=== PATIENT | female | born 1985 | race Caucasian/White ===

== ENCOUNTER 2021-03-08 03:25 | Inpatient (IN) | payer BC, OTHER ==
[2021-03-08] MEDS ORDERED: ELECTROLYTE-148 SOLN 1,000 ML IV SCH ×2 (04:00→08:45)
[2021-03-08] MEDS ORDERED: BUTORPHANOL TARTRATE 2 MG/ML VIAL IVPB ONE (04:30)
[2021-03-08] MEDS ORDERED: PROMETHAZINE HCL 25 MG/1 ML VIAL IVPB ONE (04:30)
[2021-03-08] MEDS ORDERED: PROMETHAZINE HCL 25 MG/1 ML VIAL ONE (04:59)
[2021-03-08] MEDS ORDERED: BUTORPHANOL TARTRATE 2 MG/ML VIAL ONE (04:59)
[2021-03-08 05:35] LABS: BASO % 0.3 % (0-2.0); EOS % 0.8 % (0-4.5); HEMATOCRIT 37.5 % (32.4-45.2); HEMOGLOBIN 12.5 GM/dL (10.7-15.3); LYMPH % 18.6 % (8-40); MCHC 33.3 g/dl (32.0-36.0); MEAN CELL VOLUME 81.1 fl (80-96); MEAN PLT VOLUME 11.4 fl (7.5-11.1); MONO % 5.8 % (3.8-10.2); NEUT % 74.5 % (42.8-82.8); PLATELET COUNT 149 10^3/uL (134-434); RBC 4.63 M/mm3 (3.60-5.2); RDW 14.4 % (11.6-15.6); WHITE BLOOD COUNT 7.3 K/mm3 (4.0-10.0)
[2021-03-08 05:46] LABS: INR 0.87 (0.83-1.09); PROTHROMBIN TIME (PATIENT) 9.7 SEC (9.7-13.0)
[2021-03-08 05:48] LABS: ACTIVATED PTT 24.9 SECONDS (25.2-36.5)
[2021-03-08 05:59] LABS: CALCIUM 8.9 mg/dL (8.5-10.1)
[2021-03-08 06:00] LABS: BLOOD UREA NITROGEN 11.9 mg/dL (7-18)
[2021-03-08 06:03] LABS: CREATININE 0.7 mg/dL (0.55-1.3)
[2021-03-08 06:08] VITALS: BMI 38.1
[2021-03-08] MEDS ORDERED: BUTORPHANOL TARTRATE 1 MG/ML VIAL IVPB ONE (08:33)
[2021-03-08] MEDS ORDERED: PROMETHAZINE HCL 25 MG/1 ML VIAL IVPUSH ONE (08:33)
[2021-03-08] MEDS ORDERED: FENTANYL/BUPIVACAINE/NS/PF - PCEA - 50 ML DISP.SYRIN EP ONE (12:03)
[2021-03-08] MEDS ORDERED: PCA PUMP NR ONE ×2 (12:04→18:33)
[2021-03-08] MEDS ORDERED: BUPIVACAINE HCL/PF 0.25% (2.5MG/ML) 10 ML VIAL ONE ×2 (12:06→16:16)
[2021-03-08] MEDS ORDERED: OXYTOCIN 30 UNITS in 0.9% NS 30 UNIT/500 ML INFUS.BAG IVPB ONE (12:11)
[2021-03-08] MEDS: FENTANYL/BUPIVACAINE/NS/PF - PCEA - 50 ML DISP.SYRIN EP SCH (13:00)
[2021-03-08] MEDS ORDERED: ACETAMINOPHEN INJECTION 100 ML IVPB ONE (13:20)
[2021-03-08] MEDS ORDERED: NALOXONE HCL 0.4 MG/ML VIAL IVPUSH PRN (13:25)
[2021-03-08] MEDS ORDERED: ACETAMINOPHEN 1000 MG/100 ML VIAL IVPB PRN (13:26)
[2021-03-08] MEDS ORDERED: LIDOCAINE HCL/EPINEPHRINE/PF 10 ML VIAL ONE (18:49)
[2021-03-08] MEDS ORDERED: LIDOCAINE HCL 2% (20ML MULTI-DOSE VIAL) ONE (18:52)
[2021-03-08] MEDS ORDERED: ePHEDrine SULFATE 50 MG/1 ML AMPULE ONE (18:55)
[2021-03-08] MEDS ORDERED: morphine SULFATE (PF) 1 MG/2 ML SYRINGE ONE ×2 (18:55)
[2021-03-08] MEDS ORDERED: ONDANSETRON 4 MG/2 ML VIAL ONE (18:58)
[2021-03-08] MEDS ORDERED: KETOROLAC TROMETHAMINE 30 MG/1 ML VIAL ONE (18:58)
[2021-03-08] MEDS ORDERED: OXYTOCIN 10 UNIT/ML 10ML MDV ONE (18:58)
[2021-03-08] MEDS ORDERED: ceFAZolin SODIUM 1 GM VIAL ONE (18:58)
[2021-03-08] MEDS ORDERED: PROPOFOL 20 ML ONE (19:02)
[2021-03-08] MEDS ORDERED: BENZOCAINE 20% 57 GM BOTTLE TP PRN (19:19)
[2021-03-08] MEDS ORDERED: METHYLERGONOVINE MALEATE 0.2 MG/1 ML AMP IM PRN (19:19)
[2021-03-08] MEDS ORDERED: diphenhydrAMINE HCL 25 MG CAPSULE (FP) PO PRN (19:19)
[2021-03-08] MEDS ORDERED: IBUPROFEN 800 MG/8 ML IJ IVPB PRN (19:19)
[2021-03-08] MEDS ORDERED: oxyCODONE HCL 5 MG TABLET PO PRN ×2 (19:19)
[2021-03-08] MEDS ORDERED: BENZOCAINE 28 GM HEMORRHOIDAL OINTMENT PR PRN (19:19)
[2021-03-08] MEDS ORDERED: WITCH HAZEL 50% (TUCKS) 40 PAD/JAR PAD TP PRN (19:19)
[2021-03-08] MEDS ORDERED: OXYTOCIN 20 UNITS in 0.9% NS 20 UNIT/1,000 ML INFUS.BAG IV SCH (19:30)
[2021-03-08 20:21] LABS: CORD BASE EXCESS -4.8 mmol/L (0-2); CORD HCO3 21.7 mmHg (20-29); CORD PCO2 45.1 mmHg (30-78); CORD pH 7.3 (7.14-7.44)
[2021-03-08 20:24] LABS: CORD BASE EXCESS -6.8 mmol/L (0-2); CORD HCO3 19.2 mmHg (20-29); CORD PCO2 40.3 mmHg (30-78); CORD pH 7.296 (7.14-7.44)
[2021-03-08] MEDS ORDERED: OXYTOCIN 20 UNITS in 0.9% NS 20 UNIT/1,000 ML INFUS.BAG IV ONE (20:51)
[2021-03-09] MEDS ORDERED: DEXTROSE 5%-WATER - 50 ML IVPB ONE ×2 (00:40→08:58)
[2021-03-09] MEDS ORDERED: ceFAZolin SODIUM 1 GM VIAL ONE ×2 (00:40→08:58)
[2021-03-09] MEDS: CEFAZOLIN 1 GM in DEXTROSE 5%-WATER - 50 ML IVPB SCH ×2 (01:26→09:19)
[2021-03-09] MEDS: ENOXAPARIN NA (PORCINE) 40 MG/0.4 ML DISP.SYRIN SQ SCH (09:19)
[2021-03-09] MEDS: IBUPROFEN 600 MG TABLET (FP) PO PRN ×2 (09:33→19:14)
[2021-03-09 11:41] LABS: BASO % 0.2 % (0-2.0); EOS % 0.2 % (0-4.5); HEMATOCRIT 32.8 % (32.4-45.2); LYMPH % 11.3 % (8-40); MCH 26.9 pg (25.7-33.7); MCHC 33.6 g/dl (32.0-36.0); MEAN CELL VOLUME 80.1 fl (80-96); MEAN PLT VOLUME 9.4 fl (7.5-11.1); MONO % 6.8 % (3.8-10.2); NEUT % 81.5 % (42.8-82.8); PLATELET COUNT 113 10^3/uL (134-434); RDW 14.6 % (11.6-15.6); WHITE BLOOD COUNT 8.9 K/mm3 (4.0-10.0)
[2021-03-09] MEDS ORDERED: ACETAMINOPHEN 325 MG TABLET (FP) PO PRN (14:26)
[2021-03-09] MEDS ORDERED: ACETAMINOPHEN/CAFFEINE/BUTALBITAL 1 TAB PO PRN (14:27)
[2021-03-09] MEDS ORDERED: BISACODYL 10 MG SUPP.RECT PR PRN (19:19)
[2021-03-09] MEDS: SIMETHICONE 80 MG TAB.CHEW (FP) PO PRN (20:16)
[2021-03-09] MEDS ORDERED: ceFAZolin 2 GRAM PREMIX BAG IVPB ONE (20:30)
[2021-03-09] MEDS ORDERED: LACTATED RINGERS SOLUTION 1000 ML INFUS.BAG IV ONE (20:40)
[2021-03-10] MEDS: SIMETHICONE 80 MG TAB.CHEW (FP) PO PRN ×3 (00:23→23:40)
[2021-03-10] MEDS: IBUPROFEN 600 MG TABLET (FP) PO PRN ×3 (06:22→23:40)
[2021-03-10 10:08] LABS: POC NITRAZINE POS
[2021-03-10] MEDS: ENOXAPARIN NA (PORCINE) 40 MG/0.4 ML DISP.SYRIN SQ SCH (10:43)
[2021-03-10 18:14] LABS: BASO % 0.2 % (0-2.0); EOS % 0.7 % (0-4.5); HEMATOCRIT 34.9 % (32.4-45.2); HEMOGLOBIN 11.8 GM/dL (10.7-15.3); LYMPH % 14.2 % (8-40); MCH 27.1 pg (25.7-33.7); MCHC 33.7 g/dl (32.0-36.0); MEAN CELL VOLUME 80.4 fl (80-96); MEAN PLT VOLUME 8.9 fl (7.5-11.1); MONO % 6.5 % (3.8-10.2); NEUT % 78.4 % (42.8-82.8); PLATELET COUNT 148 10^3/uL (134-434); RBC 4.35 M/mm3 (3.60-5.2); WHITE BLOOD COUNT 10.2 K/mm3 (4.0-10.0)
[2021-03-10] MEDS: FENTANYL/BUPIVACAINE/NS/PF - PCEA - 50 ML DISP.SYRIN EP SCH ×2 (20:58→20:59)
[2021-03-10] MEDS ORDERED: SENNOSIDES/DOCUSATE COMBO (SENNA PLUS) TABLET (UD) PO PRN (22:00)
[2021-03-11 07:17] LABS: BASO % 0.7 % (0-2.0); EOS % 1.6 % (0-4.5); HEMATOCRIT 31.3 % (32.4-45.2); HEMOGLOBIN 10.8 GM/dL (10.7-15.3); LYMPH % 17.5 % (8-40); MCH 27.1 pg (25.7-33.7); MCHC 34.4 g/dl (32.0-36.0); MEAN CELL VOLUME 78.8 fl (80-96); MEAN PLT VOLUME 8.7 fl (7.5-11.1); MONO % 5.6 % (3.8-10.2); NEUT % 74.6 % (42.8-82.8); PLATELET COUNT 150 10^3/uL (134-434); RBC 3.97 M/mm3 (3.60-5.2); RDW 15.1 % (11.6-15.6)
[2021-03-11] MEDS: ENOXAPARIN NA (PORCINE) 40 MG/0.4 ML DISP.SYRIN SQ SCH (09:38)
[2021-03-11] MEDS: SIMETHICONE 80 MG TAB.CHEW (FP) PO PRN (09:38)
[2021-03-11 10:27] VITALS: BP 112/75; PULSE 90; TEMP 97.9
[2021-03-11] MEDS: IBUPROFEN 600 MG TABLET (FP) PO PRN (11:11)
== END 2021-03-11 12:25 | disposition home or self-care (01) | DRG 788 ==
LOC: JDEL 03:25 → JLDR 03:26 → J3W 23:00
PROVIDERS: ADMIT Obstetrics & Gynecology; ATTEND Obstetrics & Gynecology
PROC: 10D00Z1 Extraction of Products of Conception, Low, Open Approach (ICD-10-PCS; principal; 2021-03-08)
DX: O32.4XX0 Maternal care for high head at term, not applicable or unspecified (principal); O69.81X0 Labor and delivery complicated by cord around neck, without compression, not applicable or unspecified; O42.02 Full-term premature rupture of membranes, onset of labor within 24 hours of rupture; Z3A.39 39 weeks gestation of pregnancy; Z37.0 Single live birth
CPT/HCPCS: 36415; 36600; 80048; 82803; 83986-QW; 85025; 85461; 85610; 85730; 86780; 86850; 86870; 86900; 86901; 86999; 88307-TC; C9803; J0131; U0003; U0005

== ENCOUNTER 2022-10-20 04:02 | Day surgery (SDC) | payer BC, OTHER ==
[2022-10-19 11:32] VITALS: BMI 32.5
[2022-10-20] MEDS ORDERED: MIDAZOLAM HCL 2 MG/2 ML SINGLE DOSE VIAL ONE (12:53)
[2022-10-20] MEDS ORDERED: PROPOFOL 20 ML ONE (12:53)
[2022-10-20] MEDS ORDERED: LIDOCAINE HCL/PF 2% SDV 5ML VIAL ONE (12:53)
[2022-10-20] MEDS ORDERED: KETOROLAC TROMETHAMINE 30 MG/1 ML VIAL ONE (13:10)
[2022-10-20] MEDS ORDERED: ONDANSETRON 4 MG/2 ML VIAL ONE (13:10)
[2022-10-20] MEDS ORDERED: oxyCODONE HCL 5 MG TABLET PO PRN (13:46)
[2022-10-20] MEDS ORDERED: ONDANSETRON 4 MG/2 ML VIAL IVPUSH PRN (13:46)
[2022-10-20] MEDS ORDERED: ACETAMINOPHEN 1000 MG/100 ML BAG IVPB ONE (13:47)
[2022-10-20] MEDS ORDERED: LACTATED RINGERS SOLUTION 1,000 ML IV SCH (14:00)
[2022-10-20 17:26] VITALS: BP 96/61; PULSE 70; RESP 20; TEMP 97.8
== END 2022-10-20 16:45 | disposition home or self-care (01) ==
LOC: JASU-SURG 04:02
PROVIDERS: ATTEND Obstetrics & Gynecology
PROC: 10D17ZZ Extraction of Products of Conception, Retained, Via Natural or Artificial Opening (ICD-10-PCS; principal; 2022-10-20 10:30)
DX: O03.4 Incomplete spontaneous abortion without complication (principal)
CPT/HCPCS: 36415; 76998-TC; 84702; 88305-TC; 94760

== ENCOUNTER 2024-06-29 10:18 | Emergency (ER) | payer BC, OTHER ==
[2024-06-29 10:28] VITALS: BMI 32.3
[2024-06-29] MEDS ORDERED: FAMOTIDINE 20 MG/50 ML IVPB 20 MG/50 ML MG IVPB ONE (11:30)
[2024-06-29] MEDS: FAMOTIDINE 20 MG/50 ML IVPB 20 MG/50 ML MG IVPB ONE (11:35)
[2024-06-29] MEDS: SODIUM CHLORIDE 0.9% 500 ML INFUS.BAG IV ONE ×2 (11:35→16:05)
[2024-06-29 11:38] LABS: BASO % 0.1 % (0-2.0); EOS % 0.2 % (0-4.5); HEMATOCRIT 42.6 % (32.4-45.2); HEMOGLOBIN 13.5 GM/dL (10.7-15.3); LYMPH % 5.8 % (8-40); MCH 25.6 pg (25.7-33.7); MCHC 31.6 g/dl (32.0-36.0); MEAN CELL VOLUME 80.9 fl (80-96); MEAN PLT VOLUME 8.5 fl (7.5-11.1); MONO % 3.8 % (3.8-10.2); NEUT % 90.1 % (42.8-82.8); PLATELET COUNT 235 10^3/uL (134-434); RBC 5.27 M/mm3 (3.60-5.2); RDW 14.4 % (11.6-15.6); WHITE BLOOD COUNT 4.9 K/mm3 (4.0-10.0)
[2024-06-29 11:40] LABS: EPI CELLS >36 /uL (0-25.1); HYALINE CASTS 1 /uL (0-3.1); PH,URINE 5.5 (5.0-8.0); URINE APPEARANCE CLOUDY; URINE BACTERIA 782 /uL (0-1359); URINE BILIRUBIN NEGATIVE (NEGATIVE); URINE COLOR YELLOW; URINE GLUCOSE (UA) NEGATIVE (NEGATIVE); URINE KETONE TRACE (NEGATIVE); URINE LEUK ESTERASE NEGATIVE (NEGATIVE); URINE NITRITE NEGATIVE (NEGATIVE); URINE PROTEIN NEGATIVE (NEGATIVE); URINE WBC 18 /uL (0-25.8)
[2024-06-29 11:47] LABS: URINE RBC 18 /uL (0-23.9)
[2024-06-29 11:56] LABS: CHLORIDE 108 mmol/L (98-107); POTASSIUM 4.2 mmol/L (3.5-5.1); SODIUM 139 mmol/L (136-145)
[2024-06-29 12:01] LABS: ALBUMIN 4.2 g/dl (3.4-5.0); ANION GAP 5 mmol/L (4-13); BLOOD UREA NITROGEN 10.6 mg/dL (7-18); CO2 26 mmol/L (21-32); GLUCOSE,RANDOM 89 mg/dL (74-106)
[2024-06-29 12:04] LABS: CREATININE 0.8 mg/dL (0.55-1.3); SGOT/AST 19 U/L (15-37); SGPT/ALT 27 U/L (13-61)
[2024-06-29 12:05] LABS: BILIRUBIN,TOTAL 0.5 mg/dL (0.2-1); TOT PROT 7.5 g/dl (6.4-8.2)
[2024-06-29 12:07] LABS: ALK PHOS 54 U/L (45-117)
[2024-06-29 13:35] LABS: HIV INTERPRETATION NEGATIVE (NEGATIVE)
[2024-06-29 15:58] VITALS: BP 124/81; PULSE 107; RESP 19; TEMP 98.6
== END 2024-06-29 17:19 | disposition home or self-care (01) ==
LOC: JER 10:18
PROC: 3E033GC Introduction of Other Therapeutic Substance into Peripheral Vein, Percutaneous Approach (ICD-10-PCS; principal; 2024-06-29)
DX: N83.01 Follicular cyst of right ovary (principal); R11.2 Nausea with vomiting, unspecified; R10.31 Right lower quadrant pain; R10.33 Periumbilical pain
CPT/HCPCS: 36415; 74177-TC; 76856-TC; 80053; 81003; 83690; 84702; 85025; 86803; 87086; 87389; 99285-25; Q9967